=== PATIENT | female | born 1970 | race Hispanic/Latino ===

== ENCOUNTER 2016-10-15 19:00 | Emergency (ER) | payer OTHER ==
[2016-10-15 19:05] VITALS: BP 116/66; PULSE 75; RESP 18; TEMP 98.6; O2SAT 100
--- NOTE | 2016-10-15 20:11 | ED PDOC ---
HPI: General Adult Time Seen by Provider: 10/15/16 19:49 Chief Complaint (Nursing): Dizziness/Lightheaded Chief Complaint (Provider): lightheaded History Per: Patient History/Exam Limitations: no limitations Additional Complaint(s): 45yo female comes to the ED after feeling faint while walking [place] train platform. States she had "allergy symptoms" earlier and took 1x excedrin but states afterwards she was feeling worse. Reports she had palpitations and left arm numbness. Reports nausea, but no vomit. States seasonal allergies do not usually bother her. States she takes some herbal remedies but did not take anything new today. Admits to increased stress noting possibility of a panic attack. 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, diverticulosis, compound heterozygous for mthfr, irritable bowel syndrome, migraines, "adrenal fatigue", thyroid nodules, lung nodules, breast nodules Surg Hx: Recent breast biopsy for fibroadenoma Past Medical History Reviewed: Historical Data, Nursing Documentation, Vital Signs Vital Signs: Last Vital Signs Temp 98.6 F 10/15/16 19:03 Pulse 75 10/15/16 19:03 Resp 18 10/15/16 19:03 BP 116/66 10/15/16 19:03 Pulse Ox 100 10/15/16 20:45 - Family History Family History: States: Unknown Family Hx - Allergies Allergies/Adverse Reactions: Allergies Allergy/AdvReac Type Severity Reaction Status Date / Time tetracycline Allergy RASH Verified 10/15/16 19:02 Review of Systems ROS Statement: Except As Marked, All Systems Reviewed And Found Negative Cardiovascular: Positive for: Palpitations. Negative for: Chest Pain Psych: Positive for: Anxiety Physical Exam - Reviewed Nursing Documentation Reviewed: Yes Vital Signs Reviewed: Yes - Physical Exam Appears: Positive for: Well, Non-toxic, No Acute Distress Head Exam: Positive for: ATRAUMATIC, NORMAL INSPECTION, NORMOCEPHALIC Skin: Positive for: Warm, Dry Eye Exam: Positive for: EOMI, PERRL Cardiovascular/Chest: Positive for: Regular Rate, Rhythm Respiratory: Positive for: Normal Breath Sounds. Negative for: Rales, Rhonchi, Wheezing Gastrointestinal/Abdominal: Positive for: Soft. Negative for: Tenderness Extremity: Positive for: Normal ROM Neurologic/Psych: Positive for: Alert, Oriented (x3). Negative for: Motor/ Sensory Deficits - Laboratory Results Result Diagrams: 10/15/16 20:51 10/15/16 20:51 - ECG O2 Sat by Pulse Oximetry: 100 (RA) Pulse Ox Interpretation: Normal Medical Decision Making Medical Decision Makin: accuchek is 98. Patient agrees to CT Head w/o and labs. 2200 Pt. feeling well, results explained to pt., told to f/u w/ PMD or return if worsening symptoms. Disposition - Clinical Impression Clinical Impression: Dizziness - Disposition Referrals: [facility] [Outside] [facility] [Outside] Disposition Time: 22:53 Condition: STABLE Instructions: Stress (ED), Dizziness (ED) Forms: [facility] ED School/Work Excuse Additional Comments - Additional Comments Additional Comments: Scribe Attestation: Documented by Nabor Nj acting as a scribe for Pippa Menjivar MD. Scribe Attestation: All medical record entries made by the Scribe were at my direction and personally dictated by me. I have reviewed the chart and agree that the record accurately reflects my personal performance of the history, physical exam, medical decision making, and the department course for this patient. I have also personally directed, reviewed, and agree with the discharge instructions and disposition.
[2016-10-15 20:59] LABS: BASO # 0.1 K/uL (0.0-0.2); BASO % 0.7 % (0.0-2.0); EOS # 0.1 K/uL (0.0-0.7); EOS % 1.4 % (0.0-4.0); HEMATOCRIT 39.7 % (34.0-47.0); LYMPH # 2.3 K/uL (1.0-4.3); LYMPH % 29.9 % (20.0-40.0); MEAN CELL VOLUME 84.6 fl (81.0-99.0); MEAN CORPUSCULAR HEMOGLOBIN 28.9 pg (27.0-31.0); MEAN CORPUSCULAR HGB CONC 34.2 g/dL (33.0-37.0); MONO # 0.6 K/uL (0.0-0.8); MONO % 8.4 % (0.0-10.0); NEUT # 4.6 K/uL (1.8-7.0); NEUT % 59.6 % (50.0-75.0); NRBC % 0.1 % (0.0-0.0); RED CELL DISTRIBUTION WIDTH 13.6 % (11.5-14.5); WHITE BLOOD COUNT 7.7 K/uL (4.8-10.8)
[2016-10-15 21:10] LABS: BLOOD UREA NITROGEN 11 mg/dl (7-17); CALCIUM 9.4 mg/dL (8.4-10.2); CARBON DIOXIDE 26 mmol/L (22-30); CHLORIDE 104 mmol/L (98-107); GFR AFRICAN-AMERICAN > 60; GLUCOSE,RANDOM 99 mg/dL (65-105); SODIUM 143 mmol/l (132-148)
--- NOTE | 2016-10-16 09:03 | CT ---
PROCEDURE: CT HEAD WITHOUT CONTRAST. HISTORY: dizziness, THORNTON, r/o Mass COMPARISON: None available. TECHNIQUE: Axial computed tomography images were obtained through the head/brain without intravenous contrast. Radiation dose: Total exam DLP = 874.2 mGy-cm. This CT exam was performed using one or more of the following dose reduction techniques: Automated exposure control, adjustment of the mA and/or kV according to patient size, and/or use of iterative reconstruction technique. FINDINGS: HEMORRHAGE: No intracranial hemorrhage. BRAIN: No mass effect or edema. No atrophy or chronic microvascular ischemic changes. VENTRICLES: Unremarkable. No hydrocephalus. CALVARIUM: Unremarkable. PARANASAL SINUSES: Unremarkable as visualized. No significant inflammatory changes. MASTOID AIR CELLS: Unremarkable as visualized. No inflammatory changes. OTHER FINDINGS: None. IMPRESSION: No evidence of acute intracranial hemorrhage or acute pathology. No evidence of mass lesion mass effect or midline shift. If clinically warranted further assessment by MRI may be obtained. Preliminary report was submitted by virtual Radiology.
== END 2016-10-15 22:48 | disposition home or self-care (01) ==
LOC: H.ER 19:00
DX: R42 Dizziness and giddiness (principal); R00.2 Palpitations; R20.0 Anesthesia of skin; R11.0 Nausea; K58.9 Irritable bowel syndrome, unspecified

== ENCOUNTER 2017-09-25 22:26 | Emergency (ER) | payer OTHER ==
[2017-09-25 22:32] VITALS: RESP 16; O2SAT 98
[2017-09-25] MEDS ORDERED: Sodium Chloride 0.9% 1,000 ML IV STA (23:09)
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
[2017-09-26 00:08] LABS: BASO % 0.6 % (0.0-2.0); EOS # 0.1 K/uL (0.0-0.7); EOS % 0.9 % (0.0-4.0); HEMOGLOBIN 14.2 g/dL (12.0-16.0); LYMPH # 2.7 K/uL (1.0-4.3); LYMPH % 33.7 % (20.0-40.0); MEAN CELL VOLUME 85.7 fl (81.0-99.0); MEAN CORPUSCULAR HEMOGLOBIN 28.7 pg (27.0-31.0); MEAN CORPUSCULAR HGB CONC 33.5 g/dL (33.0-37.0); MEAN PLATELET VOLUME 8.1 fl (7.2-11.7); MONO # 0.5 K/uL (0.0-0.8); MONO % 6.5 % (0.0-10.0); NEUT # 4.6 K/uL (1.8-7.0); NEUT % 58.3 % (50.0-75.0); NRBC % 0.1 % (0.0-0.0); RBC 4.95 Mil/uL (3.80-5.20); RED CELL DISTRIBUTION WIDTH 13.4 % (11.5-14.5); WHITE BLOOD COUNT 7.9 K/uL (4.8-10.8)
[2017-09-26 00:22] LABS: ALB/GLOB RATIO 1.3 (1.0-2.1); ALBUMIN 4.5 g/dL (3.5-5.0); AST/SGOT 23 U/L (14-36); BLOOD UREA NITROGEN 10 mg/dl (7-17); CALCIUM 9.3 mg/dL (8.4-10.2); GFR AFRICAN-AMERICAN > 60; GFR NON-AFRICAN AMERICAN > 60
[2017-09-26 00:43] LABS: ALT/SGPT 29 U/L (9-52)
--- NOTE | 2017-09-26 04:27 | ED PDOC ---
- Laboratory Results Result Diagrams: 09/25/17 23:54 09/25/17 23:54 - ECG O2 Sat by Pulse Oximetry: 98 Pulse Ox Interpretation: Normal Medical Decision Making Medical Decision Makin Patient signed out to me By Dr. Rogers pending bloodwork and re-eval 0230 After imitrex, patient states THORNTON is gone and she's feeling better, but still requesting crisis eval 0400 Patient cleared by crisis, patient feels well to go home, will get ride from her job. Stable for discharge, return precautions discussed. Disposition - Clinical Impression Clinical Impression: Anxiety - POA Present On Arrival: None - Disposition [facility]errals: [facility] [[facility]] Disposition: Routine/Home Disposition Time: 04:00 Condition: IMPROVED Instructions: Anxiety, Adult (DC) Forms: [facility] (Maltese), [facility] ED School/Work Excuse
[2017-09-26 04:30] VITALS: BP 132/80; PULSE 82; TEMP 97.9
--- NOTE | 2017-09-27 18:19 | CARD ---
APPROVED REPORT EKG Measurement Heart [id number] <Conclusion> Normal sinus rhythm Low voltage QRS Borderline ECG
== END 2017-09-26 04:30 | disposition home or self-care (01) ==
LOC: H.ER 22:26
DX: F41.9 Anxiety disorder, unspecified (principal); Z00.8 Encounter for other general examination
CPT/HCPCS: 80053; 81025; 82948; 84484; 85025; 93005; 96372; 99284; J3030; J7040